=== PATIENT | male | born 1970 | race Caucasian/White ===

== ENCOUNTER 2019-10-30 17:20 | Emergency (ER) | payer OTHER ==
[2019-10-30] MEDS: Lidocaine 1% 30 ML SDV INJECT ONE (18:03)
[2019-10-30] MEDS: Bacitracin Oint 1 GM U/D Packet TOP ONE (18:15)
--- NOTE | 2019-10-30 18:16 | EDM.PDOC ---
Scribed by Maine Rich 10/30/19 1810 for Kina Patiño NP ED HPI GENERAL MEDICAL PROBLEM - General Chief Complaint: Upper Extremity Injury/Pain Stated Complaint: RIGHT POINTER FINGER Time Seen by Provider: 10/30/19 17:55 Source of Information: Reports: Patient, RN, RN Notes Reviewed History Limitations: Reports: No Limitations - History of Present Illness INITIAL COMMENTS - FREE TEXT/NARRATIVE: Treble hook to tip of the right pointer finger today. Had been out fishing. Generally healthy. - Related Data Allergies Allergy/AdvReac Type Severity Reaction Status Date / Time celecoxib [From Celebrex] Allergy Swelling Verified 10/30/19 17:33 Home Meds: Home Meds Gabapentin [Neurontin] 600 mg PO DAILY 10/30/19 [History] Pantoprazole [ProTONIX] 40 mg PO DAILY 10/30/19 [History] Rosuvastatin Calcium 20 mg PO DAILY 10/30/19 [History] Past Medical History HEENT History: Reports: Impaired Vision Other HEENT History: wears glasses Cardiovascular History: Reports: High Cholesterol Respiratory History: Reports: None Gastrointestinal History: Reports: GERD Genitourinary History: Reports: None Musculoskeletal History: Reports: Back Pain, Chronic Neurological History: Reports: None Psychiatric History: Reports: None Endocrine/Metabolic History: Reports: None Hematologic History: Reports: None Immunologic History: Reports: None Oncologic (Cancer) History: Reports: None Dermatologic History: Reports: None - Infectious Disease History Infectious Disease History: Reports: Chicken Pox, Measles, Mumps - Past Surgical History Head Surgeries/Procedures: Reports: None Social & Family History - Tobacco Use Smoking Status *Q: Never Smoker Second Hand Smoke Exposure: No - Caffeine Use Caffeine Use: Reports: Coffee - Recreational Drug Use Recreational Drug Use: No Review of Systems - Review of Systems Review Of Systems: Comprehensive ROS is negative, except as noted in HPI. ED EXAM, GENERAL - Physical Exam Exam: See Below Exam Limited By: No Limitations General Appearance: Alert, WD/WN, No Apparent Distress Head: Atraumatic, Normocephalic Respiratory/Chest: No Respiratory Distress Cardiovascular: Normal Peripheral Pulses Extremities: Normal Range of Motion, Normal Capillary Refill, Other (Right pointer finger tip with treble hook and burried marah. ) Skin Exam: Warm, Dry, Normal Color, No Rash, Wound/Incision, Other (See extremity) ED TRAUMA EXTREMITY PROCEDURES - Foreign Body Removal Consent Obtained: Patient Anesthesia Type: Other (see below) (1% lidocaine without epi. 1 ml to the area around hook.) Findings:: Was easily able to pull fish hook out; intact hook Complications:: No Course - Vital Signs Last Recorded V/S: Last Vital Signs Temp 97.8 F 10/30/19 17:28 Pulse 72 10/30/19 17:28 Resp 16 10/30/19 17:28 BP 133/90 10/30/19 17:28 Pulse Ox 98 10/30/19 17:28 - Orders/Labs/Meds Meds: Medications Discontinued Medications Generic Name Dose Route Start Last Admin Trade Name Freq PRN Reason Stop Dose Admin Lidocaine HCl 30 ml 10/30/19 17:54 10/30/19 18:03 Xylocaine-Mpf 1% INJECT 10/30/19 17:55 30 ml ONETIME ONE Administration Departure - Departure Time of Disposition: 18:07 Disposition: Home, Self-Care 01 Condition: Good Clinical Impression: Fish hook injury of finger of right hand Qualifiers: Encounter type: initial encounter Qualified Code(s): S69.91XA - Unspecified injury of right wrist, hand and finger(s), initial encounter - Discharge Information Instructions: Puncture Wound Forms: ED Department Discharge Additional Instructions: Wash 3 x per day with soap and water. Watch for infection. No submersion in water such as dish soap, cleaning fish, rincon water, jacuzzi or pools until healed. apply antibiotic ointment and band-aid Sepsis Event Note (ED) - Evaluation Sepsis Screening Result: No Definite Risk - Focused Exam Vital Signs: Vital Signs Temp Pulse Resp BP Pulse Ox 10/30/19 17:28 97.8 F 72 16 133/90 98 I have read and agree with the documentation that has been completed regarding this visit. By signing this record, I attest that the documentation was completed in my physical presence and is an accurate record of the encounter.
== END 2019-10-30 18:20 | disposition home or self-care (01) ==
LOC: DL.ED 17:20
DX: S60.450A Superficial foreign body of right index finger, initial encounter (principal); E78.00 Pure hypercholesterolemia, unspecified; K21.9 Gastro-esophageal reflux disease without esophagitis; Z79.899 Other long term (current) drug therapy; Z88.6 Allergy status to analgesic agent; W45.8XXA Other foreign body or object entering through skin, initial encounter
CPT/HCPCS: 99283; J2001; 99282

== ENCOUNTER 2020-04-25 05:52 | Day surgery (SDC) | payer OTHER ==
[~2020-04-25 05:52] MED LIST: Midazolam 1 MG/ML 2 ML SDV ONE; fentaNYL 100 MCG/2 ML SDV ONE
[2020-04-25] MEDS ORDERED: fentaNYL 100 MCG/2 ML SDV IV ONE ×3 (05:53→06:50)
[2020-04-25] MEDS ORDERED: Midazolam 1 MG/ML 2 ML SDV IV ONE ×7 (05:53→06:58)
[2020-04-25] MEDS ORDERED: Dextrose 5%-0.45% NaCl 1,000 ML IV SCH (07:00)
--- NOTE | 2020-04-25 07:36 | OR ---
DATE: 04/25/2020 PREOPERATIVE DIAGNOSIS: Screening colonoscopy. POSTOPERATIVE DIAGNOSIS: Screening colonoscopy. PROCEDURE: Total colonoscopy. ANESTHESIA: Conscious sedation with IV Versed and fentanyl. SPECIMENS: None. OPERATIVE FINDINGS: Normal colonoscopy. RECOMMENDATIONS: Followup screening colonoscopy in 10 years or earlier for symptoms. INDICATION FOR PROCEDURE: This 49-year-old male referred by the [facility] here in [place] for evaluation of a screening colonoscopy. PROCEDURE IN DETAIL: After adequate preparation, a colonoscope was inserted into the rectum. This was easily passed all the way to the cecum. Confirmation of the cecum was made by visualization of the ileocecal valve, a light shining through the right lower quadrant and by palpation. A photograph of the ileocecal valve was taken. The bowel prep was excellent. On withdrawal of the scope, no abnormalities were noted. Anal and rectal examinations were also normal. Air was suctioned from the colon and the scope removed. [facility] /[id number]
== END 2020-04-25 09:07 | disposition home or self-care (01) ==
LOC: DL.ENDO 05:52
PROVIDERS: ATTEND Surgery
DX: Z12.11 Encounter for screening for malignant neoplasm of colon (principal); K21.9 Gastro-esophageal reflux disease without esophagitis; G47.30 Sleep apnea, unspecified; G47.00 Insomnia, unspecified; Z01.812 Encounter for preprocedural laboratory examination; Z20.822 Contact with and (suspected) exposure to COVID-19; Z88.8 Allergy status to other drugs, medicaments and biological substances
CPT/HCPCS: 45378; 87635; J2250; J3010; J7042; U0002